=== PATIENT | female | born 1955 | race Caucasian/White ===

== ENCOUNTER 2019-01-05 08:57 | Day surgery (SDC) | payer OTHER, BC ==
[2019-01-05] MEDS ORDERED: FENTAnyl 50 MCG/ML VIAL (10:36)
[2019-01-05] MEDS ORDERED: PROPOFOL 20 ML (10:36)
[2019-01-05] MEDS ORDERED: ONDANSETRON 4 MG INJ IV (11:00)
== END 2019-01-05 12:39 | disposition home or self-care (01) ==
LOC: GIL 08:57
DX: Z12.11 Encounter for screening for malignant neoplasm of colon (principal); K64.8 Other hemorrhoids; K57.30 Diverticulosis of large intestine without perforation or abscess without bleeding; E11.9 Type 2 diabetes mellitus without complications; E78.5 Hyperlipidemia, unspecified
CPT/HCPCS: 45378; 82962